=== PATIENT | male | born 1975 | race American Indian/Alaskan Native ===

== ENCOUNTER 2019-02-20 08:09 | Observation (INO) | payer BC, OTHER ==
[2019-02-20] MEDS ORDERED: ASPIRIN PO ONE (08:18)
[2019-02-20 08:43] LABS: Basophils % (Auto) 0.5 % (0.0-1.8); Eosinophils # (Auto) 0.1 K/mm3 (0.0-0.4); Eosinophils % (Auto) 1.5 % (0.0-4.3); Hematocrit 43.4 % (35.5-45.6); Hemoglobin 14.8 gm/dl (11.8-15.2); Lymphocytes # (Auto) 2.8 K/mm3 (1.2-5.4); Lymphocytes % (Auto) 47.1 % (13.4-35.0); Mean Corpuscular HGB Conc 34 % (32-34); Mean Corpuscular Volume 86 fl (84-94); Monocytes # (Auto) 0.4 K/mm3 (0.0-0.8); Monocytes % (Auto) 7.3 % (0.0-7.3); Platelet Count 387 K/mm3 (140-440); Red Blood Count 5.03 M/mm3 (3.65-5.03); Red Cell Distribution Width 13.6 % (13.2-15.2)
--- NOTE | 2019-02-20 08:51 | XRay Report ---
AP CHEST: HISTORY: chest pain AP view of the chest demonstrates a normal mediastinal and cardiac contour with clear lungs and normal bony and soft tissue structures. IMPRESSION: Unremarkable AP chest.
[2019-02-20 09:06] LABS: BUN/Creatinine Ratio 11; Blood Urea Nitrogen 8 mg/dL (9-20); Hemolysis Index 6
--- NOTE | 2019-02-20 09:26 | Emergency Department Report ---
ED Chest Pain HPI - General Chief Complaint: Chest Pain Stated Complaint: CHEST PAIN Time Seen by Provider: 02/20/19 09:01 Source: patient Mode of arrival: Ambulatory Limitations: No Limitations - History of Present Illness Initial Comments: Patient is a 44-year-old male presents emergency room with complaints of chest pain 4 days. Patient states the chest pain is in his left chest. Patient states the chest pain is worse with exertion and better with rest. Patient states that the chest pain is fluctuating between sharp pain and pressure. Patient states right now the chest pain as a pressure at a 7 out of 10. Patient states the chest pain is not radiating. Patient states he smokes. Patient denies past medical history. Patient not taking any medications. Patient does not take any aspirin daily. MD Complaint: chest pain -: Sudden Onset: during rest Pain Location: substernal, left chest Pain Radiation: none Severity: severe Severity scale (0 -10): 7 Quality: pressure Consistency: constant Improves With: rest Worsens With: exertion re: denies: nausea, vomting, diaphoresis, dyspnea, sense of impending doom Other Symptoms: denies: cough, fever, syncope, rash, acid taste in mouth, leg swelling, palpitations, burping Treatments Prior to Arrival: none Aspirin use within the Past 7 Days: (0) No - Related Data On Oral Contraceptives: No Previous Rx's Medication Instructions Recorded Last Taken Type Ibuprofen [Motrin] 800 mg PO Q8H PRN #20 tablet 07/21/14 Unknown Rx traMADol [Ultram] 50 mg PO Q6HR PRN #14 tablet 07/21/14 Unknown Rx Allergies Allergy/AdvReac Type Severity Reaction Status Date / Time No Known Allergies Allergy Verified 02/20/19 08:15 Heart Score - HEART Score History: Slightly suspicious EKG: Normal Age: < 45 Risk factors: 1-2 risk factors Troponin: < normal limit HEART Score: 1 ED Review of Systems ROS: Stated complaint: CHEST PAIN Other details as noted in HPI Constitutional: denies: chills, fever Eyes: denies: eye pain, eye discharge, vision change ENT: denies: ear pain, throat pain Respiratory: denies: cough, shortness of breath, wheezing Cardiovascular: chest pain. denies: palpitations Endocrine: no symptoms reported Gastrointestinal: denies: abdominal pain, nausea, diarrhea Genitourinary: denies: urgency, dysuria Musculoskeletal: denies: back pain, joint swelling, arthralgia Skin: denies: rash, lesions Neurological: denies: headache, weakness, paresthesias Psychiatric: denies: anxiety, depression Hematological/Lymphatic: denies: easy bleeding, easy bruising ED Past Medical Hx - Past Medical History Previous Medical History?: No - Surgical History Past Surgical History?: No Additional Surgical History: hernia repair - Family History Family history: no significant - Social History Smoking Status: Current Every Day Smoker Substance Use Type: None - Medications Home Medications: Home Medications Medication Instructions Recorded Confirmed Last Taken Type Ibuprofen [Motrin] 800 mg PO Q8H PRN #20 tablet 07/21/14 02/20/19 Unknown Rx traMADol [Ultram] 50 mg PO Q6HR PRN #14 tablet 07/21/14 02/20/19 Unknown Rx ED Physical Exam - General Limitations: No Limitations General appearance: alert, in no apparent distress - Head Head exam: Present: atraumatic, normocephalic - Eye Eye exam: Present: normal appearance - ENT ENT exam: Present: mucous membranes moist - Neck Neck exam: Present: normal inspection - Respiratory Respiratory exam: Present: normal lung sounds bilaterally. Absent: respiratory distress - Cardiovascular Cardiovascular Exam: Present: regular rate, normal rhythm. Absent: systolic murmur, diastolic murmur, rubs, gallop - GI/Abdominal GI/Abdominal exam: Present: soft, normal bowel sounds - Rectal Rectal exam: Present: deferred - Extremities Exam Extremities exam: Present: normal inspection - Back Exam Back exam: Present: normal inspection - Neurological Exam Neurological exam: Present: alert, oriented X3 - Psychiatric Psychiatric exam: Present: normal affect, normal mood - Skin Skin exam: Present: warm, dry, intact, normal color. Absent: rash ED Course Vital Signs 02/20/19 02/20/19 02/20/19 08:15 11:06 11:15 Temperature 97.6 F Pulse Rate 66 60 64 Respiratory 18 17 9 L Rate Blood Pressure 147/95 130/84 O2 Sat by Pulse 98 97 98 Oximetry 02/20/19 02/20/19 02/20/19 11:31 11:45 12:00 Temperature Pulse Rate 66 58 L 69 Respiratory 16 21 17 Rate Blood Pressure 130/84 130/84 136/77 O2 Sat by Pulse 97 95 98 Oximetry - Reevaluation(s) Reevaluation #1: Discussed results and plan of care with patient. Patient agrees with plan. Patient to be admitted to the hospitalist service. 02/20/19 08:55 - Consultations Consultation #1: Hospitalist consultation for admission. Hospitalist to admit patient and assume care of patient. Bridge orders place. 02/20/19 09:28 TORRI score - Torri Score Age > 65: (0) No Aspirin use within the Past 7 Days: (0) No 3 or more CAD Risk Factors: (0) No 2 or more Angina events in past 24 hrs: (1) Yes Known CAD with more than 50% Stenosis: (0) No Elevated Cardiac Markers: (0) No ST Deviation Greater than 0.5mm: (0) No TORRI Score: 1 ED Medical Decision Making - Lab Data Result diagrams: 02/20/19 14:26 02/20/19 14:26 - EKG Data -: EKG Interpreted by Me EKG shows normal: sinus rhythm, axis, intervals, QRS complexes, ST-T waves Rate: normal - Radiology Data Radiology results: report reviewed, image reviewed AP CHEST: HISTORY: chest pain AP view of the chest demonstrates a normal mediastinal and cardiac contour with clear lungs and normal bony and soft tissue structures. IMPRESSION: Unremarkable AP chest. - Medical Decision Making Patient is a 44-year-old male that presented to emergency with chest pain. Patient has a smoking history which is a significant cardiovascular risk factor. Patient was admitted to the hospital service for further evaluation. Patient's initial cardiac workup was negative. Patient's chest x-ray negative. Patient will need to rule out for ACS. - Differential Diagnosis ACS. Smoking.cp Critical Care Time: Yes Critical care attestation.: If time is entered above; I have spent that time in minutes in the direct care of this critically ill patient, excluding procedure time. Critical Care Time: 35 minutes ED Disposition Clinical Impression: Smoking Chest pain Qualifiers: Chest pain type: unspecified Qualified Code(s): R07.9 - Chest pain, unspecified Disposition: OP ADMIT IP TO THIS HOSP Is pt being admited?: Yes Does the pt Need Aspirin: No Condition: Critical Time of Disposition: :
[2019-02-20] MEDS ORDERED: PERCOCET 5/325 PO PRN (13:53)
[2019-02-20] MEDS ORDERED: TYLENOL PO PRN (13:53)
[2019-02-20] MEDS ORDERED: SODIUM CHLORIDE FLUSH SYRINGE 10 ML IV PRN ×2 (13:53)
[2019-02-20] MEDS ORDERED: ZOFRAN IV PRN (13:53)
--- NOTE | 2019-02-20 13:53 | History and Physical Report ---
History of Present Illness Date of examination: 02/20/19 Date of admission: 02/20/19 09:38 Chief complaint: cp History of present illness: Patient is a 44-year-old male with no significant past medical history who presents to the emergency room with complaints of chest pain 4 days. Patient reported the pain started on Monday afternoon and persisted through Monday. Patient reported no pain on Monday but had worsening pain this morning which prompted his visit to the emergency room. Patient states the chest pain is in his left chest and is worse with exertion and better with rest. Patient states that the chest pain is fluctuating between sharp pain and pressure. Patient states the chest pain is not radiating. He reports the pain occurs intermittent ly and lasts for only a few minutes. Also, he states the pain occurs approximately 4-5 times a day. Patient states he smokes. Patient not taking any medications. Patient reports risk factors of tobacco abuse 1 pack per day for approximately 25 years. Also, he reports mother with CABG 3 in her early 40s. Past History Past Medical History: No medical history Past Surgical History: No surgical history Social history: smoking (1 pack per day 25 years) Medications and Allergies Allergies Allergy/AdvReac Type Severity Reaction Status Date / Time No Known Allergies Allergy Verified 02/20/19 08:15 Home Medications Medication Instructions Recorded Confirmed Last Taken Type Ibuprofen [Motrin] 800 mg PO Q8H PRN #20 tablet 07/21/14 02/20/19 Unknown Rx traMADol [Ultram] 50 mg PO Q6HR PRN #14 tablet 07/21/14 02/20/19 Unknown Rx Review of Systems All systems: negative Exam - Constitutional Vitals: Temp Pulse Resp BP Pulse Ox 97.6 F 69 17 136/77 98 02/20/19 08:15 02/20/19 12:00 02/20/19 12:00 02/20/19 12:00 02/20/19 12:00 General appearance: Present: no acute distress, well-nourished - EENT Eyes: Present: PERRL ENT: hearing intact, clear oral mucosa - Neck Neck: Present: supple, normal ROM - Respiratory Respiratory effort: normal Respiratory: bilateral: CTA - Cardiovascular Heart Sounds: Present: S1 & S2. Absent: rub, click - Extremities Extremities: pulses symmetrical, No edema Peripheral Pulses: within normal limits - Abdominal General gastrointestinal: Present: soft, non-tender, non-distended, normal bowel sounds Male genitourinary: Present: normal - Integumentary Integumentary: Present: clear, warm, dry - Musculoskeletal Musculoskeletal: gait normal, strength equal bilaterally - Psychiatric Psychiatric: appropriate mood/affect, intact judgment & insight - Neurologic Neurologic: CNII-XII intact, moves all extremities Results - Labs CBC & Chem 7: 02/20/19 08:32 02/20/19 08:32 Labs: Laboratory Last Values WBC 6.0 K/mm3 (4.5-11.0) 02/20/19 08:32 RBC 5.03 M/mm3 (3.65-5.03) 02/20/19 08:32 Hgb 14.8 gm/dl (11.8-15.2) 02/20/19 08:32 Hct 43.4 % (35.5-45.6) 02/20/19 08:32 MCV 86 fl (84-94) 02/20/19 08:32 MCH 29 pg (28-32) 02/20/19 08:32 MCHC 34 % (32-34) 02/20/19 08:32 RDW 13.6 % (13.2-15.2) 02/20/19 08:32 Plt Count 387 K/mm3 (140-440) 02/20/19 08:32 Lymph % (Auto) 47.1 % (13.4-35.0) H 02/20/19 08:32 [place] % (Auto) 7.3 % (0.0-7.3) 02/20/19 08:32 Eos % (Auto) 1.5 % (0.0-4.3) 02/20/19 08:32 Baso % (Auto) 0.5 % (0.0-1.8) 02/20/19 08:32 Lymph # 2.8 K/mm3 (1.2-5.4) 02/20/19 08:32 [place] # 0.4 K/mm3 (0.0-0.8) 02/20/19 08:32 Eos # 0.1 K/mm3 (0.0-0.4) 02/20/19 08:32 Baso # 0.0 K/mm3 (0.0-0.1) 02/20/19 08:32 Seg Neutrophils % 43.6 % (40.0-70.0) 02/20/19 08:32 Seg Neutrophils # 2.6 K/mm3 (1.8-7.7) 02/20/19 08:32 Sodium 138 mmol/L (137-145) 02/20/19 08:32 Potassium 4.2 mmol/L (3.6-5.0) 02/20/19 08:32 Chloride 101.3 mmol/L (98-107) 02/20/19 08:32 Carbon Dioxide 24 mmol/L (22-30) 02/20/19 08:32 17 mmol/L 02/20/19 08:32 BUN 8 mg/dL (9-20) L 02/20/19 08:32 0.7 mg/dL (0.8-1.5) L 02/20/19 08:32 Estimated GFR > 60 ml/min 02/20/19 08:32 11 % 02/20/19 08:32 Glucose 147 mg/dL (75-100) H 02/20/19 08:32 Calcium 9.0 mg/dL (8.4-10.2) 02/20/19 08:32 < 0.010 ng/mL (0.00-0.029) 02/20/19 12:56 Assessment and Plan Assessment and plan: Chest pain. The patient will be placed on chest pain protocol and we will consult cardiology for further evaluation. Follow cardiac isoenzymes and EKG. Telemetry monitoring. Tobacco abuse disorder. Patient has been counseled on smoking cessation.
[2019-02-20] MEDS ORDERED: NACL 0.9% 1000 ML 1,000 ML IV SCH (14:00)
--- NOTE | 2019-02-20 14:44 | Consultation ---
History of Present Illness Consult date: 02/20/19 Requesting physician: JENNY SAUCEDO Consult reason: chest pain History of present illness: The pt is a 44 YO male with a past medical history of tobacco use (1ppd x 20 years). He is previously unknown to our practice. He presented with c/o intermittent chest pain since Monday. He states that he was resting at home on Monday when he noted the onset of intermittent left-sided stabbing chest pain. 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 The pain is not exertional and it does not radiate. There are no clear aggravating or alleviating factors. He denies any prior cardiac issues or cardiac w/u. 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 He reports that his mother underwent CABG in her 40s. Past History Past Medical History: No medical history Past Surgical History: No surgical history Social history: smoking (1 pack per day 25 years) Family history: CAD Medications and Allergies Allergies Allergy/AdvReac Type Severity Reaction Status Date / Time No Known Allergies Allergy Verified 02/20/19 08:15 Home Medications Medication Instructions Recorded Confirmed Last Taken Type Ibuprofen [Motrin] 800 mg PO Q8H PRN #20 tablet 07/21/14 02/20/19 Unknown Rx traMADol [Ultram] 50 mg PO Q6HR PRN #14 tablet 07/21/14 02/20/19 Unknown Rx Active Meds: Active Medications Acetaminophen (Tylenol) 650 mg PO Q4H PRN PRN Reason: Pain MILD(1-3)/Fever >100.5/GONZALEZ Enoxaparin Sodium (Lovenox) 40 mg SUB-Q QDAY JOYCE Sodium Chloride (Nacl 0.9% 1000 Ml) 1,000 mls @ 100 mls/hr IV DIRECT JOYCE Ondansetron HCl (Zofran) 4 mg IV Q8H PRN PRN Reason: Nausea And Vomiting Oxycodone/Acetaminophen (Percocet 5/325) 1 tab PO Q6H PRN PRN Reason: Pain, Moderate (4-6) Sodium Chloride (Sodium Chloride Flush Syringe 10 Ml) 10 ml IV BID JOYCE Sodium Chloride (Sodium Chloride Flush Syringe 10 Ml) 10 ml IV PRN PRN PRN Reason: LINE FLUSH Sodium Chloride (Sodium Chloride Flush Syringe 10 Ml) 10 ml IV PRN PRN PRN Reason: LINE FLUSH Review of Systems Constitutional: no weight loss, no weight gain, no fever, no chills, no sweats Ears, nose, mouth and throat: no ear pain, no nose pain, no sinus pressure, no sinus pain Cardiovascular: chest pain, no orthopnea, no palpitations, no rapid/irregular heart beat, no edema, no syncope, no lightheadedness, no shortness of breath, no dyspnea on exertion, no high blood pressure Respiratory: no cough, no shortness of breath, no dyspnea on exertion, no congestion, no wheezing, no pain on inspiration Gastrointestinal: no abdominal pain, no nausea, no vomiting, no diarrhea, no con stipation, no change in bowel habits Genitourinary Male: no dysuria, no hematuria, no flank pain, no discharge, no urinary frequency, no urinary hesitancy Musculoskeletal: no neck stiffness, no neck pain, no shooting arm pain, no arm numbness/tingling, no low back pain Integumentary: no rash, no pruritis, no redness, no sores, no wounds Neurological: no head injury, no paralysis, no weakness, no parathesias, no numbness, no tingling, no seizures Psychiatric: no anxiety Endocrine: no cold intolerance, no heat intolerance Hematologic/Lymphatic: no easy bruising, no easy bleeding Allergic/Immunologic: no urticaria, no wheezing Physical Examination Vital Signs Temp Pulse Resp BP Pulse Ox 97.6 F 66 18 147/95 98 02/20/19 08:15 02/20/19 08:15 02/20/19 08:15 02/20/19 08:15 02/20/19 08:15 General appearance: no acute distress HEENT: Positive: Normocephaly, Mucus Membranes Moist Neck: Positive: neck supple, trachea midline Cardiac: Positive: Reg Rate and Rhythm, S1/S2 Lungs: Positive: Decreased Breath Sounds Neuro: Positive: Grossly Intact, Cranial Nerve 2-12 Intact Abdomen: Positive: Soft. Negative: Tender Male genitourinary: Negative: tender Skin: Positive: Clear, Wound. Negative: Rash Musculoskeletal: No Pain Extremities: Absent: edema Results 02/20/19 08:32 02/20/19 08:32 CBC 02/20/19 Range/Units 08:32 WBC 6.0 (4.5-11.0) K/mm3 RBC 5.03 (3.65-5.03) M/mm3 Hgb 14.8 (11.8-15.2) gm/dl Hct 43.4 (35.5-45.6) % Plt Count 387 (140-440) K/mm3 Lymph # 2.8 (1.2-5.4) K/mm3 [place] # 0.4 (0.0-0.8) K/mm3 Eos # 0.1 (0.0-0.4) K/mm3 Baso # 0.0 (0.0-0.1) K/mm3 Comprehensive Metabolic Panel 02/20/19 Range/Units 08:32 Sodium 138 (137-145) mmol/L Potassium 4.2 (3.6-5.0) mmol/L Chloride 101.3 (98-107) mmol/L Carbon Dioxide 24 (22-30) mmol/L BUN 8 L (9-20) mg/dL Creatinine 0.7 L (0.8-1.5) mg/dL Glucose 147 H (75-100) mg/dL Calcium 9.0 (8.4-10.2) mg/dL - Imaging and Cardiology EKG: report reviewed, image reviewed EKG interpretations - Telemetry EKG Rhythm: Sinus Rhythm - EKG Sinus rhythms and dysrhythmias: sinus rhythm Assessment and Plan Plan for treadmill MPI stress test in AM. NPO after MN. The patient has been seen in conjunction with Dr. Duenas who agrees with the assessment and plan of care. - Patient Problems (1) Chest pain Current Visit: Yes Status: Acute Qualifiers: Chest pain type: unspecified Qualified Code(s): R07.9 - Chest pain, uns pecified (2) Tobacco use Current Visit: Yes Status: Acute
[2019-02-20 15:02] LABS: Hemoglobin 14.4 gm/dl (11.8-15.2); Mean Corpuscular HGB Conc 34 % (32-34); Mean Corpuscular Volume 87 fl (84-94); Platelet Count 371 K/mm3 (140-440); Red Blood Count 4.97 M/mm3 (3.65-5.03); Red Cell Distribution Width 13.3 % (13.2-15.2)
[2019-02-20 15:22] LABS: BUN/Creatinine Ratio 11; Blood Urea Nitrogen 8 mg/dL (9-20); Calcium 9.1 mg/dL (8.4-10.2); Hemolysis Index 7
[2019-02-20 16:08] LABS: Anisocytosis 1+; Basophils % (Manual) 0 % (0.0-1.8); Total Cells Counted 100
[2019-02-20] MEDS: PROTONIX PO SCH (18:16)
[2019-02-20] MEDS: SODIUM CHLORIDE FLUSH SYRINGE 10 ML IV SCH (22:42)
[2019-02-21 08:02] LABS: Basophils % (Auto) 0.5 % (0.0-1.8); Eosinophils # (Auto) 0.1 K/mm3 (0.0-0.4); Eosinophils % (Auto) 1.7 % (0.0-4.3); Hematocrit 42.6 % (35.5-45.6); Lymphocytes # (Auto) 2.7 K/mm3 (1.2-5.4); Lymphocytes % (Auto) 49.5 % (13.4-35.0); Mean Corpuscular HGB Conc 33 % (32-34); Mean Corpuscular Volume 88 fl (84-94); Monocytes # (Auto) 0.4 K/mm3 (0.0-0.8); Monocytes % (Auto) 7.2 % (0.0-7.3); Platelet Count 362 K/mm3 (140-440); Red Blood Count 4.86 M/mm3 (3.65-5.03); Red Cell Distribution Width 13.8 % (13.2-15.2)
[2019-02-21 08:32] LABS: BUN/Creatinine Ratio 14; Blood Urea Nitrogen 10 mg/dL (9-20); Calcium 8.7 mg/dL (8.4-10.2); Hemolysis Index 80
[2019-02-21] MEDS ORDERED: LOVENOX SUB-Q SCH (10:00)
--- NOTE | 2019-02-21 10:03 | Progress Note ---
Assessment and Plan chest pain probably gi obesity smoker rec: advised strongly to stop smoking and in view of negative stress, may discharge with continuation of protonix and follow up with pcp Subjective Date of service: 02/21/19 Principal diagnosis: chest pain Interval history: pt had no chest pain since consult Objective Vital Signs Temp Pulse Pulse Pulse Resp BP Pulse Ox 02/21/19 08:18 97.8 F 61 20 139/81 96 02/21/19 05:18 97.3 F L 89 20 121/82 95 02/21/19 04:00 89 02/21/19 00:08 97.7 F 84 20 121/74 94 02/20/19 22:00 85 85 95 02/20/19 21:00 98.1 F 85 20 131/86 94 02/20/19 20:00 84 02/20/19 17:30 98.3 F 66 18 138/79 97 02/20/19 12:38 56 L 147/83 97 02/20/19 12:21 70 18 130/84 98 02/20/19 12:00 69 17 136/77 98 02/20/19 11:45 58 L 21 130/84 95 02/20/19 11:31 66 16 130/84 97 02/20/19 11:15 64 9 L 130/84 98 02/20/19 11:06 60 17 97 - Physical Examination General: Appears Well HEENT: Positive: Normocephaly, Mucus Membranes Moist Neck: Positive: neck supple, trachea midline Cardiac: Positive: Reg Rate and Rhythm Lungs: Positive: clear to auscultation Neuro: Positive: Grossly Intact, Cranial Nerve 2-12 Intact Abdomen: Positive: Soft. Negative: Tender Skin: Positive: Clear, Wound. Negative: Rash Musculoskeletal: No Pain Extremities: Absent: edema - Labs and Meds CBC 02/20/19 02/21/19 Range/Units 14:26 07:16 WBC 5.7 5.5 (4.5-11.0) K/mm3 RBC 4.97 4.86 (3.65-5.03) M/mm3 Hgb 14.4 14.0 (11.8-15.2) gm/dl Hct 43.0 42.6 (35.5-45.6) % Plt Count 371 362 (140-440) K/mm3 Lymph # 2.7 (1.2-5.4) K/mm3 [place] # 0.4 (0.0-0.8) K/mm3 Eos # 0.1 (0.0-0.4) K/mm3 Baso # 0.0 (0.0-0.1) K/mm3 Comprehensive Metabolic Panel 02/20/19 02/21/19 Range/Units 14:26 07:16 Sodium 140 141 (137-145) mmol/L Potassium 4.0 4.8 (3.6-5.0) mmol/L Chloride 101.7 104.8 (98-107) mmol/L Carbon Dioxide 25 25 (22-30) mmol/L BUN 8 L 10 (9-20) mg/dL Creatinine 0.7 L 0.7 L (0.8-1.5) mg/dL Glucose 144 H 151 H (75-100) mg/dL Calcium 9.1 8.7 (8.4-10.2) mg/dL - Imaging and Cardiology EKG: report reviewed, image reviewed Exercise stress test: report reviewed (negative treadmill ekg, 10 minutes emerson protocol no exaggerated bp response to exercise and normal myocardial perfusion ef 57%) - Telemetry EKG Rhythm: Sinus Rhythm - EKG Sinus rhythms and dysrhythmias: sinus rhythm
[2019-02-21] MEDS: PROTONIX PO SCH (10:13)
[2019-02-21] MEDS: SODIUM CHLORIDE FLUSH SYRINGE 10 ML IV SCH (10:26)
--- NOTE | 2019-02-21 10:38 | Discharge Summary ---
Providers - Providers Date of Admission: 02/20/19 09:38 Date of discharge: 02/21/19 Attending physician: JENNY SAUCEDO 02/20/19 Consult to Cardiac Rehabilitation [CONS] Routine Reason For Exam: Phase I 02/20/19 13:54 Consult to Cardiology [CONS] Routine Consulting Provider: EMIGDIO YOUNGBLOOD Reason For Exam: cp Hospitalization Reason for admission: cp Condition: Critical Hospital course: The pt is a 44 YO male with a past medical history of tobacco use (1ppd x 20 years) who presented with c/o intermittent chest pain since Monday. He stated that he was resting at home on Monday when he noted the onset of intermittent left-sided stabbing chest pain. 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 The pain was not exertional and it does not radiate. There were no clear aggravating or alleviating factors. He denied any prior cardiac issues or cardiac w/u. 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 He reports that his mother underwent CABG in her 40s. Patient was seen by cardiology in consultation who recommended stress test which was found to be negative. Cardiology felt the patient could be discharged home. Etiology of chest pain likely GERD. The dictated discharge time 31 minutes Disposition: DC-01 TO HOME OR SELFCARE Time spent for discharge: 31 - Discharge Diagnoses (1) Chest pain Status: Acute Qualifiers: Chest pain type: unspecified Qualified Code(s): R07.9 - Chest pain, unspecified (2) Smoking Status: Acute (3) GERD (gastroesophageal reflux disease) Status: Acute Core Measure Documentation - Palliative Care Palliative Care/ Comfort Measures: Not Applicable - Core Measures Any of the following diagnoses?: none Exam - Constitutional Vitals: Temp Pulse Resp BP Pulse Ox 97.8 F 61 20 139/81 96 02/21/19 08:18 02/21/19 08:18 02/21/19 08:18 02/21/19 08:18 02/21/19 08:18 General appearance: Present: no acute distress, well-nourished - EENT Eyes: Present: PERRL ENT: hearing intact, clear oral mucosa - Neck Neck: Present: supple, normal ROM - Respiratory Respiratory effort: normal Respiratory: bilateral: CTA - Cardiovascular Heart Sounds: Present: S1 & S2. Absent: rub, click - Extremities Extremities: pulses symmetrical, No edema Peripheral Pulses: within normal limits - Abdominal General gastrointestinal: Present: soft, non-tender, non-distended, normal bowel sounds Male genitourinary: Present: normal - Integumentary Integumentary: Present: clear, warm, dry - Musculoskeletal Musculoskeletal: gait normal, strength equal bilaterally - Psychiatric Psychiatric: appropriate mood/affect, intact judgment & insight - Neurologic Neurologic: CNII-XII intact, moves all extremities Plan Activity: no restrictions Weight Bearing Status: Full Weight Bearing Diet: regular Follow up with: DYANA MAYS [Other] - 7 Days Prescriptions: oxyCODONE /ACETAMINOPHEN [Percocet 5/325 mg] 1 tab PO Q6H PRN #8 tablet PRN Reason: Pain, Moderate (4-6) Pantoprazole [Protonix TAB] 40 mg PO QDAY #30 tablet
[2019-02-21 11:59] VITALS: BP 153/83
--- NOTE | 2019-02-21 22:30 | Treadmill Report ---
NUCLEAR PERFUSION STUDY REASON FOR STUDY: Chest pain. IMAGING PROTOCOL: The patient received 10 mCi of Technetium 99m Tetrofosmin for resting image and 28 mCi of Technetium 99m Tetrofosmin for stress imaging. The imaging for the whole procedure was completed 30-90 minutes following the initial injection of Technetium 99m Tetrofosmin. The SPECT imaging in the 180 degree arc was performed in the right anterior oblique projection. Computerized reconstruction of the images was performed for analysis. IMAGING RESULTS: Normal cavity size from stress to rest. Normal distribution of radionuclide in the anterior, inferior, septal, and apical regions. Gated SPECT, EF 57% with no wall motion abnormality. The patient exercised on Naeem protocol for 10 minutes, had no exaggerated BP response, max heart rate was 160, max blood pressure 195/95. No EKG changes to suggest ischemia. SUMMARY: 1. Negative treadmill EKG. 2. Good exercise capacity 10 minutes Naeem protocol. 3. No exaggerated BP response to exercise. 4. Normal rest and stress myocardial perfusion scan. No significant ischemia. No wall motion abnormality. Gated SPECT 57%. [facility]# [id number] VRAgnes/NTS
== END 2019-02-21 13:54 | disposition home or self-care (01) ==
LOC: ED 08:09 → 4A 09:38
PROVIDERS: ADMIT Hospitalist; ATTEND Hospitalist
DX: R07.89 Other chest pain (principal); K21.9 Gastro-esophageal reflux disease without esophagitis; F17.210 Nicotine dependence, cigarettes, uncomplicated; Z82.49 Family history of ischemic heart disease and other diseases of the circulatory system; Z79.899 Other long term (current) drug therapy
CPT/HCPCS: 36415; 71045; 78452; 80048; 84484; 85007; 85025; 93005; 93010; 93017; 96372; 99291; 99406; A9502; G0378; J1650; J7030